=== PATIENT | female | born 1955 | race Caucasian/White ===

== ENCOUNTER 2018-11-11 18:38 | Emergency (ER) | payer MEDICAID ==
[2018-11-11 18:49] VITALS: BP 131/92; PULSE 74; RESP 18; TEMP 98.4; O2SAT 97
[2018-11-11] MEDS ORDERED: Tramadol 25 mg PO STA (19:36)
--- NOTE | 2018-11-11 19:50 | C.PDOC ---
History Of Present Illness 63 year old female presents complaining of right shoulder pain. Patient states she fell a week ago and over extended her arm, initially she felt fine after the fall but 3 days later began having mild pain and now reports being unable to move the arm due to pain. Denies weakness or numbness. Time Seen by Provider: 11/11/18 19:21 Chief Complaint (Nursing): Upper Extremity Problem/Injury History Per: Patient History/Exam Limitations: no limitations Onset/Duration Of Symptoms: Days Current Symptoms Are (Timing): Still Present Exacerbating Factor(s): Movement Recent travel outside of the [place]: No Past Medical History Reviewed: Historical Data, Nursing Documentation, Vital Signs Vital Signs: Last Vital Signs Temp 98.4 F 11/11/18 18:46 Pulse 74 11/11/18 18:46 Resp 18 11/11/18 18:46 BP 131/92 H 11/11/18 18:46 Pulse Ox 97 11/11/18 18:46 Primary Care Provider: Maciel Stein - Medical History PMH: HTN Denies: Diabetes, Hepatitis, HIV, Seizures, Sexually Transmitted Disease Family History: States: No Known Family Hx - Social History Hx Tobacco Use: No Hx Alcohol Use: No Hx Substance Use: No - Immunization History Hx Influenza Vaccination: No Hx Pneumococcal Vaccination: No Review Of Systems Musculoskeletal: Positive for: Shoulder Pain (Right) Neurological: Negative for: Weakness, Numbness Physical Exam - Physical Exam Appears: Non-toxic Skin: Normal Color, Warm Head: Atraumatic, Normacephalic Eye(s): bilateral: Normal Inspection Extremity: Capillary Refill (<2 seconds), No Deformity, Other (Tenderness to anterior right shoulder, limited ROM of right shoulder secondary to pain.) Pulses: Left Radial: Normal, Right Radial: Normal Neurological/Psych: Oriented x3, Normal Speech, Normal Motor, Normal Sensation ED Course And Treatment O2 Sat by Pulse Oximetry: 97 (Room air) Pulse Ox Interpretation: Normal - Other Rad Right shoulder x-ray X-Ray: Interpreted by Me, Viewed By Me Interpretation: No acute fracture or dislocation Progress Note: Right shoulder x-ray ordered, results were negative. Tramadol and flexeril administered. Patient is resting comfortably in no acute distress, vitals are stable, will discharge home with Rx and instructions to follow up with ortho. Disposition Counseled Patient/Family Regarding: Diagnosis, Need For Followup, Rx Given - Disposition Referrals: Maciel Stein MD [Medical Doctor] - Disposition: HOME/ ROUTINE Disposition Time: 19:46 Condition: STABLE Additional Instructions: Please follow up with PCP Take medications as directed Return to ER if worse Prescriptions: Cyclobenzaprine [Cyclobenzaprine HCl] 10 mg PO HS #10 tab traMADol [Ultram] 50 mg PO TID #15 tab Instructions: Shoulder Sprain (DC) Forms: [employer] (Bulgarian) - Clinical Impression Clinical Impression: Sprain of shoulder, right - PA / CHOPPER OPERATOR / Resident Statement MD/DO has reviewed & agrees with the documentation as recorded. - Scribe Statement The provider has reviewed the documentation as recorded by the Scribbrock Eaton All medical record entries made by the Alyceibbrock were at my direction and personally dictated by me. I have reviewed the chart and agree that the record accurately reflects my personal performance of the history, physical exam, medical decision making, and the department course for this patient. I have also personally directed, reviewed, and agree with the discharge instructions and disposition.
--- NOTE | 2018-11-12 10:54 | RAD ---
Date of service: 11/11/2018 PROCEDURE: Radiographs of the Right Shoulder HISTORY: fall, pain COMPARISON: No prior. TECHNIQUE: 3 views obtained. FINDINGS: BONES: Bone alignment and mineralization are normal. There is no acute displaced fracture or bone destruction. 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 SOFT TISSUES: Normal. OTHER FINDINGS: None. IMPRESSION: No acute fracture or dislocation.
== END 2018-11-11 20:24 | disposition home or self-care (01) ==
LOC: C.ER 18:38
DX: S43.401A Unspecified sprain of right shoulder joint, initial encounter (principal); W19.XXXA Unspecified fall, initial encounter; I10 Essential (primary) hypertension